=== PATIENT | female | born 1960 | race Caucasian/White ===

== ENCOUNTER → 2017-04-27 | Outpatient (CLI) | payer OTHER ==
--- NOTE | ~2017-04-27 | MY11 ---
[facility] A Service of [facility] RADIOLOGY TEXT RESULTS PATIENT: CHRISTY TERRAZAS LOCATION: [facility] ACC #: [id number] : 60 UNIT #: [id number] AGE: [address]: Benja Camejo MD SEX: F ORDER DR: [id number] [facility]. [place], [place] [address] [id number] O MR#: [id number] #: [id number] NAME: CHRISTY TERRAZAS : 1960 SEX: F STUDY DATE/TIME: 04/27/2017 8:54 UNIT: [facility] ROOM: STUDY DESCRIPTION: MY Mammogram Screening Dig [place] Attending Physician: Benja Camejo M.D. Ordering Physician: Benja Camejo M.D. Primary Care Physician: Benja Camejo M.D. MEDICAL IMAGING REPORT This report is preliminary unless electronic signature is present EXAM Bilateral digital screening mammogram with CAD INDICATION Routine screening. No current complaints. No family history of breast cancer. COMPARISON 01/14/2014, 06/08/2011, 11/11/2009. FINDINGS MLO and CC digital views of each breast were obtained. The exam was reviewed with an FDA-approved CAD device. The breasts are heterogeneously dense. There are no masses or abnormal calcifications. IMPRESSION No evidence of malignancy. No change. Patients over the age of 40 are entered into a reminder system with target due date for the next mammogram. A result letter will also be sent to the patient. BIRADS: 2 Benign finding Dictated by... Jose Beard M.D. THIS IS AN ELECTRONICALLY VERIFIED REPORT Jose Beard M.D. at 04/28/2017 7:04 AM DAKOTAH/dany TD: 04/27/2017 12:54 [facility] A Service of [facility] RADIOLOGY TEXT RESULTS PATIENT: CHRISTY TERRAZAS LOCATION: [facility] COMPANY #: [id number] : 60 UNIT #: [id number] AGE: [address]: Benja Camejo MD SEX: F ORDER DR: JOB #: [id number] MEDICAL IMAGING REPORT Page 1 of 1 COPY
== END | disposition home or self-care (01) ==
LOC: CWCC 08:30
DX: Z12.31 Encounter for screening mammogram for malignant neoplasm of breast (principal)
CPT/HCPCS: G0202